=== PATIENT | male | born 1945 | race Caucasian/White ===

== ENCOUNTER 2017-08-11 08:25 | Outpatient (CLI) | payer MEDICARE ==
--- NOTE | 2017-08-11 12:15 | CT ---
NONCONTRAST CT THORAX: 08/11/2017 HISTORY: History of smoking for 40 years. FINDINGS: There are emphysematous changes seen throughout the lungs bilaterally. No pulmonary nodule, mass, or pleural effusion is seen. Minimal atelectasis versus scarring is seen in the region of the inferome dial aspect of the right middle lobe and lingula. Lack of intravenous contrast limits evaluation of the mediastinal structures and the vasculature. Th ere are dense vascular calcifications seen in the coronary arteries, as well as involving the thoraci c and visualized upper abdominal aorta. No enlarged lymph nodes are seen on this nonenhanced CT scan examination. A nonobstructing 4 mm calculus is seen in the superior pole of the right kidney. The spleen has a lobulated appearance with linear, coarse-appearing calcifications at the periphery, which may be related to prior splenic injury. Findings of the spleen are stable, dating back to a st udy on 01/14/2009. Compression fractures are seen involving the T6, T7, T8, and T9 vertebral bodies, with the greatest d egree of height loss involving the T7 and T9 vertebral bodies, with greater than 50% loss of height a nteriorly involving the T7 vertebral body. These compression fractures were also seen on prior plain film evaluation of the thoracic spine on 02/03/2011. IMPRESSION: 1. Chronic obstructive pulmonary disease. 2. No evidence of a pulmonary nodule or mass. 3. Dense vascular calcifications in the coronary arteries, as well as involving the thoracic aorta. 4. Nonobstructing superior pole right renal calculus. 5. Stable compression fractures involving the T6-T9 vertebral bodies. POS: [facility]
== END 2017-08-11 08:26 | disposition home or self-care (01) ==
LOC: CT 08:25
PROVIDERS: ATTEND Internal Medicine Pulmonary Disease
DX: Z87.891 Personal history of nicotine dependence (principal); J44.9 Chronic obstructive pulmonary disease, unspecified; N20.0 Calculus of kidney; S22.059A Unspecified fracture of T5-T6 vertebra, initial encounter for closed fracture; S22.069A Unspecified fracture of T7-T8 vertebra, initial encounter for closed fracture; S22.079A Unspecified fracture of T9-T10 vertebra, initial encounter for closed fracture; I25.10 Atherosclerotic heart disease of native coronary artery without angina pectoris
CPT/HCPCS: 71250